=== PATIENT | female | born 2000 | race Caucasian/White ===

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

== ENCOUNTER → 2018-12-19 | Outpatient (REF) | payer OTHER ==
[~2018-12-19] MED LIST: BACIOIN7 TOP; HYDR-3715 PO; KEFL500C17 PO; LEVA1TAB2 PO; NAPR-837 PO
== END ==
LOC: M SFHCLERA 09:27
PROVIDERS: ATTEND Physician Assistant
DX: J02.9 Acute pharyngitis, unspecified (principal)

== ENCOUNTER → 2019-11-29 | Outpatient (CLI) | payer BC ==
[2019-11-29 16:00] LABS: GLUCOSE,RANDOM 86 MG/DL (LESS THAN 200)
[2019-11-29 16:06] LABS: TESTOSTERONE 24 NG/DL (14-76)
[2019-11-29 16:07] LABS: FOLLICLE STIMULATING HORMONE 3.6 mIU/mL; LUTEINIZING HORMONE 1.1 mIU/mL; PROLACTIN 7.8 NG/ML
[2019-11-29 16:10] LABS: HCG, SERUM QUALITATIVE NEGATIVE (NEGATIVE)
[2019-12-07 03:11] LABS: 17 HYDROXY PROGESTERONE 36 ng/dL (.); DEHYDROEPIANDROSTERONE UNCONJ 360 ng/dL (31-701); INSULIN FREE 30 uU/mL (.); INSULIN TOTAL2 30 uU/mL (.)
== END ==
LOC: M PLALAB 14:20
PROVIDERS: ATTEND Nurse Practitioner Adult Health
DX: R10.2 Pelvic and perineal pain (principal)

== ENCOUNTER → 2020-04-30 | Outpatient (CLI) | payer BC ==
--- NOTE | 2020-04-30 17:48 | REP ---
INDICATION: CONSTIPATION,R/O OBSTRUCTION. COMPARISON: CT abdomen pelvis 09/11/2016, AP abdomen 10/01/2007. TECHNIQUE: Two views AP supine abdomen to encompass the entirety of the abdominal cavity. FINDINGS: Moderate stool in the right transverse and left colon to the sigmoid I do not see abnormal distention. There is no dilated small bowel loop identified over most small bowel loops are fluid-filled. No abnormal soft tissue calcifications. I see no mass. Bones intact IMPRESSION: 1. There is mild to moderate constipation without any definite signs of obstruction. Small bowel loops are mostly fluid-filled without dilated loops visible. No other finding. <Electronically signed by Franklyn Alexandra > 04/30/20 [id number]
== END ==
LOC: M RAD 17:06
PROVIDERS: ATTEND Nurse Practitioner Family
DX: K59.00 Constipation, unspecified (principal)

== ENCOUNTER → 2020-06-10 | Outpatient (CLI) | payer BC ==
[~2020-06-10] MED LIST changes: +FLUO40CA PO; +XARE20TA PO
[2020-06-10 14:20] LABS: BASO % 0.5 % (0.0-1.0); EOS # 0.3 10^3/uL (0.0-0.5); EOS % 5.3 % (0.0-3.0); HEMATOCRIT 41.5 % (36.0-47.0); HEMOGLOBIN 13.1 g/dl (12.0-15.5); LYMPH # 1.8 10^3/uL (1.5-5.0); LYMPH % 28.5 % (24.0-44.0); MEAN CORPUSCULAR HGB CONC 31.6 g/dl (32.0-36.5); MEAN CORPUSCULAR VOLUME 91.8 fl (80.0-96.0); MONO # 0.5 10^3/uL (0.0-0.8); MONO % 8.2 % (2.0-8.0); NEUTROPHILS # 3.6 10^3/uL (1.5-8.5); NEUTROPHILS % 57.2 % (36.0-66.0); PLATELET COUNT, AUTOMATED 414 10^3/uL (150-450); RED BLOOD COUNT 4.52 10^6/uL (4.00-5.40); WHITE BLOOD COUNT 6.3 10^3/uL (4.0-10.0)
[2020-06-10 15:03] LABS: ALBUMIN 3.9 GM/DL (3.2-5.2); ALT/SGPT 32 U/L (12-78); BILIRUBIN,TOTAL 0.2 MG/DL (0.2-1.0); BLOOD UREA NITROGEN 12 MG/DL (7-18); CALCIUM LEVEL 9.3 MG/DL (8.5-10.1); CARBON DIOXIDE LEVEL 23 MEQ/L (21-32); CHLORIDE LEVEL 108 MEQ/L (98-107); CREATININE FOR GFR 0.62 MG/DL (0.55-1.30); GLOMERULAR FILTRATION RATE > 60.0 (>60); GLUCOSE, FASTING 101 MG/DL (70-100); POTASSIUM SERUM 4.2 MEQ/L (3.5-5.1); SODIUM LEVEL 139 MEQ/L (136-145); TOTAL PROTEIN 7.2 GM/DL (6.4-8.2)
== END ==
LOC: M LAB 13:58
PROVIDERS: ATTEND Specialist
DX: I47.1 Supraventricular tachycardia (principal)

== ENCOUNTER 2022-09-14 09:54 | Emergency (ER) | payer BC ==
[~2022-09-14] VITALS: Ht 160 cm; Wt 125.7 kg
[2022-09-14] MEDS ORDERED: LEVO50TA5 (10:03)
[2022-09-14] MEDS ORDERED: ESCITALOPRAM (10:03)
[2022-09-14] MEDS ORDERED: APAP325T4 PO (10:07)
[2022-09-14] MEDS ORDERED: ACETAMINOPHEN 500 MG TAB PO ONE (10:40)
[2022-09-14 11:33] LABS: BASO % 0.1 % (0.0-1.0); EOS % 0.2 % (0.0-3.0); HEMATOCRIT 43.2 % (36.0-47.0); HEMOGLOBIN 14.3 g/dl (12.0-15.5); LYMPH # 0.5 10^3/uL (1.5-5.0); LYMPH % 5.2 % (24.0-44.0); MEAN CORPUSCULAR HEMOGLOBIN 29.4 pg (27.0-33.0); MEAN CORPUSCULAR HGB CONC 33.1 g/dl (32.0-36.5); MEAN CORPUSCULAR VOLUME 88.9 fl (80.0-96.0); MONO # 0.4 10^3/uL (0.0-0.8); MONO % 4.3 % (2.0-8.0); NEUTROPHILS % 89.9 % (36.0-66.0); PLATELET COUNT, AUTOMATED 272 10^3/uL (150-450); RED BLOOD COUNT 4.86 10^6/uL (4.00-5.40); WHITE BLOOD COUNT 8.9 10^3/uL (4.0-10.0)
[2022-09-14] MEDS ORDERED: ISOVUE-370 76% 100ML VIAL As Ordered ONE (11:46)
[2022-09-14 11:47] LABS: INR 1.05; PARTIAL THROMBOPLASTIN TIME 31.4 SECONDS (24.8-34.2); PROTHROMBIN TIME 13.9 SECONDS (12.5-14.5)
[2022-09-14 11:50] LABS: D-DIMER QUANT 2825.5 ng/ml (<500)
[2022-09-14 11:54] LABS: CK-MB VALUE MASS < 1.0 NG/ML (<3.6)
[2022-09-14 11:56] LABS: CPK CREATINE PHOSPHOKINASE 137 U/L (34-145); MB/CK RELATIVE INDEX 0.72 (< OR =4)
[2022-09-14 13:09] VITALS: TEMP 100.5
[2022-09-14 13:10] VITALS: BP 133/73; O2SAT 95
== END 2022-09-14 13:33 | disposition home or self-care (01) ==
LOC: M ED 09:54
DX: R06.02 Shortness of breath (principal); B34.0 Adenovirus infection, unspecified; I10 Essential (primary) hypertension; Z86.718 Personal history of other venous thrombosis and embolism; D68.51 Activated protein C resistance; I80.9 Phlebitis and thrombophlebitis of unspecified site; K59.00 Constipation, unspecified; F17.200 Nicotine dependence, unspecified, uncomplicated; Z88.6 Allergy status to analgesic agent; Z88.0 Allergy status to penicillin; Z79.899 Other long term (current) drug therapy
CPT/HCPCS: 36415; 71275; 80047; 82550; 82553; 83605; 84484; 84702; 85025; 85379; 85610; 85730; 87040; 87486; 87581; 87633; 87798; 93005; 93041; 93970; 93971; 94760; 99284; Q9967

== ENCOUNTER 2023-07-02 17:55 | Emergency (ER) | payer SELFPAY ==
[~2023-07-02] VITALS: Ht 160 cm; Wt 124.0 kg
[~2023-07-02 17:55] MED LIST changes: +ALPR0.25; +APAP325T4 PO; +CVS5000S2 PO; +ELIQ5TAB; +ELIQ5TAB PO; +ESCITALOPRAM; +FISH100042 PO; +FISH10005 PO; +LEVO50TA5; +VITAD400CA PO; +ZOLP10TA2
[2023-07-02 18:57] LABS: BASO % 0.4 % (0.0-1.0); EOS # 0.1 10^3/uL (0.0-0.5); EOS % 1.5 % (0.0-3.0); HEMATOCRIT 44.9 % (36.0-47.0); HEMOGLOBIN 14.8 g/dl (12.0-15.5); LYMPH # 2.5 10^3/uL (1.5-5.0); LYMPH % 31.3 % (24.0-44.0); MEAN CORPUSCULAR HEMOGLOBIN 30.4 pg (27.0-33.0); MEAN CORPUSCULAR VOLUME 92.2 fl (80.0-96.0); MONO # 0.5 10^3/uL (0.0-0.8); MONO % 6.1 % (2.0-8.0); NEUTROPHILS # 4.7 10^3/uL (1.5-8.5); NEUTROPHILS % 60.3 % (36.0-66.0); PLATELET COUNT, AUTOMATED 343 10^3/uL (150-450); RED BLOOD COUNT 4.87 10^6/uL (4.00-5.40); WHITE BLOOD COUNT 7.8 10^3/uL (4.0-10.0)
[2023-07-02] MEDS: ACETAMINOPHEN 500 MG TAB PO ONE (19:17)
[2023-07-02 19:53] LABS: MONO REFLEX EBV COMP NEGATIVE (NEGATIVE)
[2023-07-02 19:55] LABS: ALBUMIN 4.1 G/DL (3.2-5.2); ALKALINE PHOSPHATASE 108 U/L (46-116); ALT/SGPT 42 U/L (7.0-40); AST/SGOT 26 U/L (<34); BILIRUBIN,TOTAL 0.4 MG/DL (0.3-1.2); BLOOD UREA NITROGEN 16 MG/DL (9-23); CALCIUM LEVEL 9.8 MG/DL (8.5-10.1); CARBON DIOXIDE LEVEL 27 MMOL/L (20-31); CHLORIDE LEVEL 105 MMOL/L (98-107); CREATININE FOR GFR 0.61 MG/DL (0.55-1.30); GLOMERULAR FILTRATION RATE > 60.0 (>60); GLUCOSE, FASTING 89 MG/DL (60-100); POTASSIUM SERUM 4.6 MMOL/L (3.5-5.1); SODIUM LEVEL 139 MMOL/L (136-145); TOTAL PROTEIN 7.3 G/DL (5.7-8.2)
[2023-07-02 20:13] VITALS: BP 123/71; TEMP 97.6; O2SAT 100
[2023-07-05 15:08] LABS: EBV VIRAL CAPSID AG IgM <36.0 U/mL (0.0-35.9)
== END 2023-07-02 20:25 | disposition home or self-care (01) ==
LOC: M ED 17:55
DX: J02.9 Acute pharyngitis, unspecified (principal); Z88.8 Allergy status to other drugs, medicaments and biological substances; Z79.899 Other long term (current) drug therapy

== ENCOUNTER → 2023-09-23 | Outpatient (REF) | payer BC ==
[2023-09-23 17:28] LABS: ALBUMIN 4.3 G/DL (3.2-5.2); ALKALINE PHOSPHATASE 104 U/L (46-116); ALT/SGPT 43 U/L (7.0-40); AST/SGOT 22 U/L (<34); BILIRUBIN,TOTAL 0.3 MG/DL (0.3-1.2); BLOOD UREA NITROGEN 14 MG/DL (9-23); CALCIUM LEVEL 9.5 MG/DL (8.5-10.1); CARBON DIOXIDE LEVEL 24 MMOL/L (20-31); CHLORIDE LEVEL 108 MMOL/L (98-107); CHOLESTEROL LEVEL 209 MG/DL (<200); CHOLESTEROL RISK RATIO 3.84 (<5); CREATININE FOR GFR 0.54 MG/DL (0.55-1.30); GLOMERULAR FILTRATION RATE > 60.0 (>60); GLUCOSE, FASTING 86 MG/DL (60-100); HDL CHOLESTEROL 54.3 MG/DL (>40); LDL CHOLESTEROL 114.7 MG/DL (<100); NON-HDL-C 154.7 MG/DL; POTASSIUM SERUM 4.3 MMOL/L (3.5-5.1); SODIUM LEVEL 138 MMOL/L (136-145); TOTAL 25(OH) VITAMIN D 47.1 NG/ML (20.0-100.0); TOTAL PROTEIN 6.7 G/DL (5.7-8.2); TRIGLYCERIDES LEVEL 200 MG/DL (<150)
[2023-09-23 17:29] LABS: THYROID STIMULATING HORMONE 1.845 uIU/ML (0.55-4.78)
[2023-09-23 17:30] LABS: FREE T4 1.43 NG/DL (0.89-1.76)
[2023-09-23 17:31] LABS: BASO % 0.4 % (0.0-1.0); EOS # 0.1 10^3/uL (0.0-0.5); EOS % 1.2 % (0.0-3.0); HEMATOCRIT 40.3 % (36.0-47.0); HEMOGLOBIN 13.4 g/dl (12.0-15.5); LYMPH # 2.6 10^3/uL (1.5-5.0); LYMPH % 35.3 % (24.0-44.0); MEAN CORPUSCULAR HEMOGLOBIN 30.8 pg (27.0-33.0); MEAN CORPUSCULAR HGB CONC 33.3 g/dl (32.0-36.5); MEAN CORPUSCULAR VOLUME 92.6 fl (80.0-96.0); MONO # 0.5 10^3/uL (0.0-0.8); MONO % 6.4 % (2.0-8.0); NEUTROPHILS # 4.1 10^3/uL (1.5-8.5); NEUTROPHILS % 56.6 % (36.0-66.0); PLATELET COUNT, AUTOMATED 299 10^3/uL (150-450); RED BLOOD COUNT 4.35 10^6/uL (4.00-5.40); WHITE BLOOD COUNT 7.3 10^3/uL (4.0-10.0)
== END ==
LOC: M SFHCLERA 13:43
PROVIDERS: ATTEND Physician Assistant
DX: F41.9 Anxiety disorder, unspecified (principal); E03.9 Hypothyroidism, unspecified